=== PATIENT | female | born 1990 | race Caucasian/White ===

== ENCOUNTER 2020-12-07 15:48 | Inpatient (IN) ==
[2020-12-07] MEDS: RINGER'S SOLUTION,LACTATED 1,000 ML IV PRN ×3 (16:15→18:30)
[2020-12-07] MEDS ORDERED: BUPIVACAINE HCL/EPINEPHRINE 50 ML VIAL IJ ONE (16:54)
[2020-12-07] MEDS ORDERED: NORMAL SALINE 20 ML VIAL ONE (16:54)
[2020-12-07] MEDS ORDERED: EPINEPHrine 1 MG/ML AMPUL ONE (17:19)
--- NOTE | 2020-12-07 17:29 | ANES ---
Anesthesia Pre Procedure Eval Vitals/Labs: Last Vital Signs Temp 36.9 C 12/07/20 16:12 Pulse 85 12/07/20 16:12 Resp 18 12/07/20 16:12 BP 139/72 12/07/20 16:12 Pulse Ox 98 12/07/20 16:12 HOME MEDICATIONS prenat.vits,jarrett,bfx-vxnk-wjweh 1 tab PO DAILY 10/07/19 [Last Taken Unknown] hydroxyzine HCl 25 mg tablet 25 mg PO Q4H PRN #30 tab 05/10/20 [Last Taken Unknown] ascorbate calcium (vitamin C) 500 mg tablet 500 mg PO DAILY 10/19/20 [Last Taken Unknown] ferrous sulfate 325 mg (65 mg iron) tablet 325 mg PO DAILY 10/19/20 [Last Taken Unknown] levothyroxine 125 mcg tablet 125 mcg PO DAILY #30 tab 11/05/20 [Last Taken Unknown] Allergies/Adverse Reactions: Allergies Allergy/AdvReac Type Severity Reaction Status Date / Time No Known Allergies Allergy Verified 12/07/20 13:58 - Planned Procedure Planned Procedure: Primary Section Medication List Reviewed:: Yes Allergies Verified: Yes Medical History (Last Reviewed 12/07/20 @ 17:28 by Donato Mcdonald CRNA) Breech presentation, antepartum (Acute) Failed ECV at [facility] 11/30/20 Pre-eclampsia in third trimester (Acute) IUGR (intrauterine growth restriction) (Acute) Onset Date: 11/29/20 Diagnosed at [facility] on 11/29/20, normal cord dopplers Body mass index (BMI) of 39.0-39.9 in adult (Chronic) History of recurrent , currently (Chronic) Anxiety (Chronic) Hypothyroidism (Chronic) Hypothyroid Onset Date: ~12/2014 Pancreatitis Onset Date: ~05/2018 d/t gallbladder disease Surgical History (Last Reviewed 12/07/20 @ 17:28 by Donato Mcdonald CRNA) History of appendectomy Onset Date: ~2016 History of cholecystectomy Onset Date: ~05/2018 History of dilation and curettage Onset Date: 10/08/19 suction curettage-missed ab History of tonsillectomy and adenoidectomy Onset Date: Unknown Family History (Last Reviewed 12/07/20 @ 17:28 by Donato Mcdonald CRNA) Mother Alive and well Father Hypothyroidism Hypertension Alcoholism Grandmother Cancer maternal-ovarian - Family Anesthesia History Family History:: no untoward family reactions to anesthesia - Airway/Neck/Teeth Within Normal Limits:: Yes Teeth Condition: intact Neck Exam: full range of motion Mallampatti Score: 2 Thyromental (T-M) distance: > 6 cm Mandibulo Hyoid distance: > 3 cm - Respiratory Respiratory Physical: lungs clear Smoking Status: Former smoker Sleep Apnea currently treated: No Sleep Apnea by current assessment: No - Cardiovascular Tolerate Activity: Good Heart Sounds: S1 & S2, Regular - Gastrointestinal NPO since: 1200 - Anesthesia Assessment and Plan ASA Class: PS, II, E Anesthesia Type Plan: Spinal - bilat tap block Planned difficult intubation/equipment available: No
[2020-12-07] MEDS ORDERED: ceFAZolin SODIUM 1 GM VIAL ONE (17:42)
[2020-12-07] MEDS ORDERED: OXYTOCIN/0.9 % SODIUM CHLORIDE 30 UNITS/500 ML BAG IV ONE (18:46)
[2020-12-07] MEDS ORDERED: fentaNYL CITRATE/PF 50 MCG/ML AMPUL ONE (18:58)
[2020-12-07] MEDS ORDERED: ONDANSETRON HCL/PF 2 MG/ML VIAL ONE (18:59)
[2020-12-07] MEDS ORDERED: ONDANSETRON HCL/PF 2 MG/ML VIAL IV PRN (19:57)
[2020-12-07] MEDS ORDERED: BISACODYL 10 MG SUPP.RECT RC PRN (19:57)
[2020-12-07] MEDS ORDERED: SIMETHICONE 80 MG TAB.CHEW PO PRN (19:57)
[2020-12-07] MEDS ORDERED: IBUPROFEN 800 MG TABLET PO PRN (19:57)
[2020-12-07] MEDS ORDERED: SENNOSIDES 8.6 MG TABLET PO PRN (19:57)
[2020-12-07] MEDS ORDERED: hydrOXYzine HCL 25 MG TABLET PO PRN (19:58)
--- NOTE | 2020-12-07 20:09 | OR ---
Operative Report - Dictated Report Narrative: Indication: 30-year old 3 para 0 at 39 weeks admitted for primary low transverse section due to preeclampsia and IUGR with breech presentation. Status: Urgent Pre Operative Diagnosis: 39-week intrauterine . Breech presentation. Preeclampsia. IUGR. Morbid obesity. Hypothyroid. Post Operative Diagnosis: Same. Procedure Preformed: Primary Low Transverse Section Surgeon: Marisela Altamirano DO Technologist Infectious Disease: OR Staff Anesthesia: Spinal,TAP block Estimated Blood Loss: 400 mL Urine Output: 250 mL of clear urine Fluids Given: 2050 mL of crystalloid Drains: Benjamin to gravity Surgical Complications: None Specimens: Placenta to pathology Findings: Female born at 1842 on 12/07/2020 with Apgars 8 and 8, weighing 2819 g in grace breech presentation. Normal uterus, tubes, ovaries. Technique: The patient was taken to the operating room and placed in dorsal supine position with a left lateral tilt. After adequate spinal anesthesia, benjamin catheter insertion,SCDs placed, and 2 g of Ancef given preoperatively, the abdominal cavity was entered via a modified Celso-Fields incision. Two rolled laps were placed in the pericolic gutters on either side of the uterus. A transverse incision was made in the lower uterine segment and extended laterally and upwardly with digital traction. Clear fluid was noted upon amniotomy. The buttocks and aft coming body were delivered to the level of the shoulders. The right and left arm were then delivered with slight rotation to clear the shoulders under the hysterotomy. Due to obstruction from the pannus, we are unable to get adequate flexion to deliver the head. Piper forceps were applied to allow flexion and delivery of the head. After approximately 1 minute, the cord was clamped and cut and was handed off to awaiting public defender. A segment of cord was obtained for cord gases. The placenta was allowed to deliver spontaneously. The uterus was cleared of clot and debris. Uterine incision was closed with 0 Vicryl using a running stitch. A second imbricating layer was placed. A [id number] 0 Vicryl suture was placed in the center of the incision to control bleeding. Excellent hemostasis was noted. Rolled laps were removed from the abdominal cavitiy. The peritoneum was closed with a running 3-0 Monocryl. The same suture was used to approximate the rectus and pyramidalis muscles. The fascia was closed with a running 0 Vicryl. The subcutaneous layer was closed with a running 3-0 Monocryl. The same suture was used to approximate the subdermal layer. The skin was closed with a running 4-0 Monocryl and Dermabond. Cord gases were obtained approximately 34 minutes after delivery. Sponge, lap, needle, and instrument count were correct x 2. Disposition: The patient was transferred to post anesthesia care unit in good condition History for MU History for MU Definition: * The number of deliveries resulting in a live the patient experienced prior to current hospitalization * The previous delivery of live twins or any live multiple gestation is considered one live event. *If primagravida or nulliparous is documented select zero for the number of previous live births. Live Events: Live Events: 0
--- NOTE | 2020-12-07 20:29 | ANES ---
Post Anesthesia Discharge - Transfer of Care Transfer of Care handoff given to nurse: Yes - Discharge from PACU Discharge from PACU when meets criteria: Yes
--- NOTE | 2020-12-07 20:29 | ANES ---
Post Anesthesia Assessment - Vital Signs Vitals: Last Vital Signs Temp 36.6 C 12/07/20 20:10 Pulse 79 12/07/20 20:10 Resp 22 H 12/07/20 20:10 BP 140/57 H 12/07/20 20:10 Pulse Ox 97 12/07/20 20:10 Airway Patency: Normal - Mental Status Level Of Consciousness: Awake - Pain Level Pain Score: 4 - N/V Assessment Nausea/Vomiting Presence: None Dehydration:: No
--- NOTE | 2020-12-07 20:32 | ANES ---
Anesthesia Procedure Note Procedure Note: ANESTHESIA PROCEDURE NOTE Date of procedure: 12/07/2020. Time of procedure: 1949. Performed by: Cristian Mcdonald CRNA [employer] Data Warehouse Developer: Marian Ag RN . Preprocedure diagnosis: section for breech presentation. Post procedure diagnosis: Same. Procedure: Ultrasound-guided bilateral tap block Indications: Postoperative analgesia. Findings: Patient is placed in a supine position in the PACU. Patient's right abdominal wall was prepped with ChloraPrep. Ultrasound utilized to identify the fascial layer between the internal oblique and transabdominus muscles. A 20- gauge 4 inch regional block needle was advanced under ultrasound guidance until tip of needle was placed just distally to fascial layer. 20 mL of 0.25% Marcaine with epinephrine 1-200,000 was injected with adequate spread of local anesthesia noted. Procedure was then repeated on patient's left side. EBL: Minimal. Fluids: N/A. Specimen: N/A. Post procedure condition: The patient tolerated the procedure well. No complications were noted. Thank you for this consultation Cristian Mcodnald CRNA
[2020-12-07] MEDS: oxyCODONE HCL/ACETAMINOPHEN 1 TAB TABLET PO PRN ×2 (20:34→23:52)
[2020-12-07] MEDS: IBUPROFEN 800 MG TABLET PO PRN (20:34)
[2020-12-07] MEDS: DOCUSATE SODIUM 100 MG CAPSULE PO SCH (22:05)
[2020-12-08] MEDS: IBUPROFEN 800 MG TABLET PO PRN ×3 (02:42→23:01)
[2020-12-08] MEDS: oxyCODONE HCL/ACETAMINOPHEN 1 TAB TABLET PO PRN ×5 (04:18→21:24)
[2020-12-08] MEDS ORDERED: ceFAZolin SODIUM 1 GM VIAL IV PRN (06:00)
[2020-12-08] MEDS: PRENATAL VITS96/IRON FUM/FOLIC 1 TAB TABLET PO SCH (09:27)
[2020-12-08] MEDS: LEVOTHYROXINE SODIUM 125 MCG TABLET PO SCH (09:27)
[2020-12-08] MEDS: DOCUSATE SODIUM 100 MG CAPSULE PO SCH ×2 (09:27→21:24)
[2020-12-08] MEDS: ASCORBIC ACID 500 MG TABLET PO SCH (09:27)
[2020-12-08] MEDS: FERROUS SULFATE 325 MG TABLET PO SCH (09:27)
--- NOTE | 2020-12-08 12:41 | PN ---
Subjective - Date and Time Seen Date: 12/08/20 Time: 12:40 Objective - Vitals Vitals: Last Vital Signs Temp 36.5 C 12/08/20 07:15 Pulse 67 12/08/20 07:15 Resp 18 12/08/20 07:15 BP 126/65 12/08/20 07:15 Pulse Ox 97 12/08/20 07:15 Patient denies complaints. Specifically denies headache, visual changes, or epigastric pain. Tolerating regular diet. Ambulating without difficulty. Pain well controlled. Lochia wnl. Abdomen - soft, appropriately tender Incision -clean, dry, intact uterus - firm, at umbilicus -1 No calf tenderness Impression: Post op day #1 s/p primary section for breech presentation with preeclampsia. Plan: Continue routine post-operative/ care Cauti Physician Documentation - Urinary Catheter Management Urethral ([place]) Date of Insertion: 12/07/20 Time of Insertion: 18:15 Date of Removal: 12/08/20 Time of Removal: 07:15
[2020-12-09] MEDS: oxyCODONE HCL/ACETAMINOPHEN 1 TAB TABLET PO PRN ×5 (02:34→21:08)
[2020-12-09] MEDS: IBUPROFEN 800 MG TABLET PO PRN ×3 (05:55→19:59)
[2020-12-09] MEDS: ASCORBIC ACID 500 MG TABLET PO SCH (08:09)
[2020-12-09] MEDS: FERROUS SULFATE 325 MG TABLET PO SCH (08:10)
[2020-12-09] MEDS: LEVOTHYROXINE SODIUM 125 MCG TABLET PO SCH (08:10)
[2020-12-09] MEDS: DOCUSATE SODIUM 100 MG CAPSULE PO SCH ×2 (08:10→21:05)
[2020-12-09] MEDS: PRENATAL VITS96/IRON FUM/FOLIC 1 TAB TABLET PO SCH (08:10)
--- NOTE | 2020-12-09 09:20 | PN ---
Subjective - Date and Time Seen Date: 12/09/20 Time: 09:18 Objective - Vitals Vitals: Last Vital Signs Temp 36.4 C 12/09/20 07:07 Pulse 60 12/09/20 07:07 Resp 20 12/09/20 07:07 BP 133/79 12/09/20 07:07 Pulse Ox 97 12/09/20 07:07 [Patient denies complaints. Ambulating well. Tolerating regular diet. Pain well controlled.] Lochia wnl. Abdomen - soft, appropriately tender Incision - [clean, dry, intact] Uterus - firm, at umbilicus -[2] No calf tenderness Impression: Post op day #2 s/p primary section. Preeclampsia-resolved Plan: Continue routine post-operative/ care Cauti Physician Documentation - Urinary Catheter Management Urethral ([place]) Date of Insertion: 12/07/20 Time of Insertion: 18:15 Date of Removal: 12/08/20 Time of Removal: 07:15
[2020-12-10] MEDS: oxyCODONE HCL/ACETAMINOPHEN 1 TAB TABLET PO PRN ×2 (01:26→07:10)
[2020-12-10] MEDS: IBUPROFEN 800 MG TABLET PO PRN (07:10)
[2020-12-10] MEDS: LEVOTHYROXINE SODIUM 125 MCG TABLET PO SCH (07:10)
[2020-12-10] MEDS: ASCORBIC ACID 500 MG TABLET PO SCH (08:56)
[2020-12-10] MEDS: PRENATAL VITS96/IRON FUM/FOLIC 1 TAB TABLET PO SCH (08:56)
[2020-12-10] MEDS: FERROUS SULFATE 325 MG TABLET PO SCH (08:56)
--- NOTE | 2020-12-10 11:19 | PN ---
Subjective - Date and Time Seen Date: 12/10/20 Time: 10:58 Objective - Vitals Vitals: Last Vital Signs Temp 36.6 C 12/10/20 07:10 Pulse 67 12/10/20 07:10 Resp 20 12/10/20 07:10 BP 152/88 H 12/10/20 07:15 Pulse Ox 99 12/10/20 07:10 Patient denies complaints. Ambulating without difficulty. Tolerating regular diet. Pain well controlled. Lochia wnl. Abdomen - soft, appropriately tender Incision -clean, dry, intact uterus - firm, at umbilicus -3 No calf tenderness Impression: Post op day #3 s/p primary section for breech presentation. Preeclampsia. BMI 45.4 Plan: Routine discharge instructions with the addition of preeclampsia precautions. Patient instructed to take blood pressure at home twice a day and call for severe range blood pressures or symptoms. Follow-up in 1 week. Cauti Physician Documentation - Urinary Catheter Management Urethral ([place]) Date of Insertion: 12/07/20 Time of Insertion: 18:15 Date of Removal: 12/08/20 Time of Removal: 07:15 Assessment/Plan - Problems/Diagnosis (1) Pre-eclampsia in third trimester Problem: Acute (2) Delivery by section for breech presentation Problem: Acute (3) BMI 45.0-49.9, adult Problem: Chronic (4) Breech presentation, antepartum Problem: Acute Qualifiers: Fetus number: single or unspecified fetus Qualified Code(s): O32.1XX0 - Maternal care for breech presentation, not applicable or unspecified (5) Anxiety Problem: Chronic (6) Hypothyroidism Problem: Chronic Qualifiers: Hypothyroidism type: unspecified Qualified Code(s): E03.9 - Hypothyroidism, unspecified (7) IUGR (intrauterine growth restriction) Problem: Resolved
--- NOTE | 2020-12-10 11:20 | DS ---
OB Discharge Summary (1) Pre-eclampsia in third trimester Status: Acute (2) Delivery by section for breech presentation Status: Acute (3) BMI 45.0-49.9, adult Status: Chronic (4) Breech presentation, antepartum Status: Acute Qualifiers: Fetus number: single or unspecified fetus Qualified Code(s): O32.1XX0 - Maternal care for breech presentation, not applicable or unspecified (5) Anxiety Status: Chronic (6) Hypothyroidism Status: Chronic Qualifiers: Hypothyroidism type: unspecified Qualified Code(s): E03.9 - Hypothyroidism, unspecified (7) IUGR (intrauterine growth restriction) Status: Resolved Delivery Date: 12/07/20 Delivery Time: 18:42 :: 3 Para:: 1 Gestational weeks:: 39 Gestational days:: 0 Intrapartum Procedures: Delivery-Low Transverse, Anesthesia - Spinal Procedures: None /OP Complications: Preeclampsia/GHTN Discharge Diagnosis: Term -Delivered, Preeclampsia mild/severe - Discharge Information Date of Discharge: 12/10/20 Hospital Course: 30-year-old 3 now para 1 admitted for primary low transverse section due to fetus in breech presentation. Patient's was complicated by breech presentation, IUGR, preeclampsia, BMI of 45+, hypothyroidism, and anxiety. Delivery was uneventful. course was complicated by persistent elevated blood pressures bordering on severe range, but normal lab work and lack of severe symptoms. Patient was discharged on postop day #3 with routine discharge instructions and the addition of preeclampsia precautions. Patient was instructed to take her blood pressures twice a day and call for severe range pressures. Discharge Location: Home Disposition: Home self-care Condition: Good Activity on Discharge:: Activity as tolerated, Pelvic Rest, No lifting Discharge Diet: General/regular food Additional Patient Instructions (free text): Odette will follow up with Dr. Altamirano on Continue to take vitamins one daily. Rest when your baby rests. Drink plenty of water, eat a lot of fruits and vegetables, and lean meat. Nurse your baby every 2-3 hours and when showing feeding cues. Gregory will follow up with Santana Whitley on Gregory birthweight was 6#3.4 oz. today's weight was Tauren blood type is O positive. She has passed her hearing screen, her CHD and her Metabolic Screen has been drawn. Always use safe sleeping practices. always place her on her back in her own bed. No co-sleeping, bumper pad, stuffed animals, pillows or heavy blankets in sleeping area. Thank you for choosing [facility] for your special event. We hope we have exceeded your expectations. If you have any concerns or questions please call [facility] [phone], [facility] [phone], or [facility] [phone]. Prescriptions (Any new or edited meds): oxyCODONE HCL/ACETAMINOPHEN [Percocet 5 MG/325 MG] 1 tab PO Q4H PRN #10 tab PRN Reason: Moderate Pain Transmission Status: Received by [facility] Complete Home Medications List: Complete Home Medication List: prenat.vits,jarrett,obt-fjyi-[id number] 1 tab PO DAILY 10/07/19 hydroxyzine HCl 25 mg tablet 25 mg PO Q4H PRN #30 tab 05/10/20 ascorbate calcium (vitamin C) 500 mg tablet 500 mg PO DAILY 10/19/20 ferrous sulfate 325 mg (65 mg iron) tablet 325 mg PO DAILY 10/19/20 levothyroxine 125 mcg tablet 125 mcg PO DAILY #30 tab 11/05/20 oxyCODONE HCL/ACETAMINOPHEN [Percocet 5 MG/325 MG] 1 tab PO Q4H PRN #10 tab 12/08/20 breast pump See Rx Instructions .ROUTE .MEDSUPPLY #1 ea 12/10/20 - Plan Discharge to:: Home Follow up in office in:: 1 week - [place] Information Weight (Grams): 2,819 Infant Sex: Female Score 1 min: 8 Score 5 min: 8 Infant Complications: None
[2020-12-10 14:55] VITALS: BP 139/85
== END 2020-12-10 13:45 | disposition home or self-care (01) | DRG 788 ==
LOC: OB 15:48
PROVIDERS: ADMIT Obstetrics & Gynecology; ATTEND Obstetrics & Gynecology
DX: Z37.0 Single live birth; O99.283 Endocrine, nutritional and metabolic diseases complicating pregnancy, third trimester; E66.01 Morbid (severe) obesity due to excess calories; Z3A.39 39 weeks gestation of pregnancy; O32.1XX0 Maternal care for breech presentation, not applicable or unspecified; O99.213 Obesity complicating pregnancy, third trimester; O14.93 Unspecified pre-eclampsia, third trimester; O36.5930 Maternal care for other known or suspected poor fetal growth, third trimester, not applicable or unspecified